=== PATIENT | male | born 1975 | race Caucasian/White ===

== ENCOUNTER 2019-04-08 20:17 | Emergency (ER) | payer MEDICAID ==
[2019-04-09] MEDS: KETOROLAC 30 MG INJ IM (01:21)
[2019-04-09] MEDS: LORAZEPAM 0.5 MG TAB PO (01:21)
== END 2019-04-09 01:29 | disposition home or self-care (01) ==
LOC: E/R 20:17
DX: R07.9 Chest pain, unspecified (principal); F41.9 Anxiety disorder, unspecified
CPT/HCPCS: 96372; 99284-25